=== PATIENT | female | born 1945 | race Two or more races ===

== ENCOUNTER 2020-04-03 13:31 | Inpatient (IN) | payer OTHER ==
[~2020-04-03] VITALS: Ht 152.4 cm; Wt 62.6 kg
[2020-04-29] MEDS ORDERED: DAFLONEX-XL 11300 MG PO (11:12)
[2020-04-29] MEDS ORDERED: MONTELUKAST SOD10 MG PO (11:13)
[2020-04-29] MEDS ORDERED: OMEPRAZOLE40 MG PO (11:13)
[2020-04-29] MEDS ORDERED: ACTONEL35 MG PO (11:13)
[2020-04-29] MEDS ORDERED: SYNALAR TOP (11:14)
[2020-04-29] MEDS ORDERED: BETANATE15 GM (11:15)
[2020-04-29] MEDS ORDERED: CALCIUM500 M1 PO (11:15)
[2020-04-29] MEDS ORDERED: TYLENOL EXTRA500 MG PO (11:16)
[2020-04-29] MEDS ORDERED: DERMACINRX5000 UNIT PO (11:17)
[2020-05-08] MEDS ORDERED: HYOSCYAMINE0.125 M1 SL (17:12)
[2020-05-08] MEDS ORDERED: LOVENOX40 MG/0.4 SUBCUTANEO (17:13)
[2020-05-08] MEDS ORDERED: GABAPENTIN300 MG PO (17:13)
== END 2020-05-08 17:36 | disposition home or self-care (01) | DRG 331 ==
LOC: SURH 05-04 07:00 → O/R 05-04 07:00 → SURH 05-04 08:45
PROVIDERS: ADMIT Surgery; ATTEND Surgery
PROC: 0DJD8ZZ Inspection of Lower Intestinal Tract, Via Natural or Artificial Opening Endoscopic (ICD-10-PCS; 2020-05-04)
PROC: 0DBN4ZZ Excision of Sigmoid Colon, Percutaneous Endoscopic Approach (ICD-10-PCS; principal; 2020-05-04 07:00)
DX: K59.02 Outlet dysfunction constipation (principal); I87.2 Venous insufficiency (chronic) (peripheral); J45.20 Mild intermittent asthma, uncomplicated; N39.42 Incontinence without sensory awareness

== ENCOUNTER 2021-07-01 06:58 | Day surgery (SDC) | payer OTHER ==
[~2021-07-01 06:58] MED LIST: ACTONEL35 MG PO; BETANATE15 GM; CALCIUM500 M1 PO; DAFLONEX-XL 11300 MG PO; DERMACINRX5000 UNIT PO; GABAPENTIN300 MG PO; HYOSCYAMINE0.125 M1 SL; LOVENOX40 MG/0.4 SUBCUTANEO; MONTELUKAST SOD10 MG PO; OMEPRAZOLE40 MG PO; SYNALAR TOP; TYLENOL EXTRA500 MG PO
== END 2021-07-01 11:05 | disposition home or self-care (01) ==
LOC: AMB-ENDOS 06:58
PROVIDERS: ATTEND Surgery
DX: D12.4 Benign neoplasm of descending colon (principal)